=== PATIENT | female | born 2005 | race Caucasian/White ===

== ENCOUNTER 2024-10-30 16:52 | Outpatient (REF) | payer BC, SELFPAY ==
--- NOTE | ~2024-10-30 | MR_ITS ---
CLINICAL HISTORY: EFFUSION INSTABILITY MR right knee without gadolinium Comparison: None provided Findings: No acute fracture or pathologic bone lesion. Focal abnormal signal in medial patellar facet articular cartilage of the inferior aspect with associated subcortical marrow change suggestive of grade 4 chondromalacia patella. Also irregularity of medial femoral condylar articular cartilage with subcortical bone marrow changes consistent with grade 4 chondromalacia. Ggpyv-[id number] joint effusion with superior synovial plica. Medial and lateral patellar retinacula are intact. Mild marginal osteophyte formation in medial and lateral tibiofemoral compartments. The ACL, PCL, MCL, LCL complex and the extensor mechanism appear intact. No medial or lateral meniscal tear. 1 cm intra-articular loose body posterior to the PCL. Visualized musculature appears unremarkable. IMPRESSION: 1. No meniscal or ligamentous tear. 2. Sjejy-ze-jtjxdiio joint effusion with superior synovial plica. 3. Early degenerative changes in medial and lateral tibiofemoral compartments. 4. 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 This document has been electronically signed by: Jael Shah MD on 10/30/2024 17:53:07
--- OUTSIDE RECORDS SUMMARY | 2024-10-30 17:12 | XMS_ITS | Clinical Summary ---
Author Organization [facility] Address [address] [place] [address] Phone Care Team Providers Care Sustainable Communities Designer Name Role Phone Vandana Rodriguez MD Primary Care Provider Vandana Rodriguez MD Unavailable [phone] Vandana Rodriguez MD Unavailable [phone] Medications ondansetron ODT (Zofran-ODT) 4 mg disintegrating tablet Dose: 4 mg, Dose Amount: 1 tab, PO, Q8hr, PRN Nausea/Vomit ing, Special Instructions : Indication: ONCOLOGY, Dispense Quantity: 10 tab, Refills: 1, Entered: 04/27/19 7:31:04 EDT, 77.8 0 Active Social History Tobacco Use Types Packs/Day Years Used Date Smoking Tobacco: Never Assessed Comments Unknown Sex and Gender Information Value Date Recorded Sex Assigned at Not on file Legal Sex Female 10:49 PM EDT Gender Identity Not on file Sexual Orientation Not on file Last Filed Vital Signs Vital Sign Reading Time Taken Comments Blood Pressure - - Pulse - - Temperature 36.7 C (98.1 F) 09/08/2020 4:09 PM EDT Respiratory Rate - - Oxygen Saturation - - Inhaled Oxygen Concentration - - Weight 84.2 kg (185 lb 10 oz) 09/08/2020 4:09 PM EDT Height 182 cm (5' 11.65 ) 09/08/2020 4:09 PM EDT Body Mass Index 25.42 09/08/2020 4:09 PM EDT Plan of Treatment Not on file Care Teams Sustainable Communities Designer Relationship Specialty Start Date End Date Vandana Rodriguez MD [address] [place] [address] PCP - General 09/05/20 Vandana Rodriguez MD [address] [place] [address] PCP - Insurance PCP 04/16/19 Vandana Rodriguez MD [address] [place] [address] PCP - Clinical PCP 09/25/13
--- OUTSIDE RECORDS SUMMARY | 2024-10-30 17:12 | XMS_ITS | Clinical Summary ---
Author Organization [facility] Address [address] [place] [phone] Phone Care Team Providers Care Slubber Machine Operator Name Role Phone Vandana Rodriguez MD Primary Care Provider [phone] Allergies No known active allergies Medications SUMAtriptan (Imitrex) 25 MG tabletIndication s:Migraine with aura and without status migrainosus, not intractable Take 1 tablet (25 mg total) by mouth once as needed for migraine for up to 1 dose. 9 tablet 1 1 Active Active Problems Problem Noted Date Diagnosed Date Herpes simplex 09/19/2021 Assessment & Plan (09/20/2021 7:17 AM EDT): Has not had any further issues. Discussed taking meds immediately at the first sign of an out break. Migraine with aura and witho ut status migrainosus, not intractable 09/16/2017 Assessment & Plan (09/20/2021 7:18 AM EDT): Has been doing well, not needing her sumatriptan. Discussed prevention. Discussed immediate medication if having a migraine. Assessment & Plan (2020 4:20 PM EDT): Has been doing great. Rx for imitrex refilled today, take immediately at the beginning of a migraine. Assessment & Plan (09/29/2019 12:57 PM EDT): Very rare at this point. Assessment & Plan (09/18/2018 10:31 AM EDT): Much better. Sumatriptan works well, discussed increasing dose to 50 mg if needed. Discussed trying to identify triggers and avoid when possible. Assessment & Plan (09/16/2017 11:02 AM EDT): Aura: pain behind left eye. Not always with aura. Has needed to take Imitrex 3-4 times last year, works well. Discussed taking it early into the process. Discussed continuing to try and identify triggers. Resolved Problems Problem Noted Date Diagnosed Date Resolved Date H/O methicillin resistant St aphylococcus aureus infection 2020 09/20/2021 Cellulitis due to MRSA 07/31/202009/15 Overview (07/31/2020): L upper anterior thigh 07/2020 Assessment & Plan (2020 4:19 PM EDT): Resolved. Discussed possible recurrence. Discussed contagiousness. Discussed mupirocin and compresses. Osteochondritis dissecans of knee, right 05/19/2019 2020 Overview (05/19/2019): Surgery 04/27/19 Assessment & Plan (09/29/2019 12:56 PM EDT): Completely recovered from the surgery, continues w/ PT. Allowed to run and jog, still no basketball or volleyball yet. Immunizations Immunization Administration Dates Next Due DTaP 09/22/2008, 5,03/20/2004,01/18,2003 HPV Vaccine 9 Valent 09/19/2016,10/05/2015 Hep A, ped/adol 09/18/2018,09/16/2017 Hep B, ped/adol 03/20/2004, 4,2003,09/16 Hib (HbOC) 12/18/2004, 5,01/19/2004,11/16 IPV 09/22/2008, 5,01/19/2004,11/16 Influenza, injectable, quadrivalent 10/08/2013 Influenza, injectable, quadr ivalent, preservative free 10/28/2018,04/04/2017 Influenza, injectable, trivalent 013,01/14/2007,11/28/2005,01/17,12/18/2004 Influenza, intranasal, quadrivalent 05/02/2009,0 04/02/2009 Influenza, intranasal, trivalent 013,10/31/2010,12/18/2009,12/15,12/16/2007 MMR 09/17/2007,12/18/2004 Meningococcal B Bexsero 09/19/2021,06/29/2021 Meningococcal Conj (Menactra) MCV4P 09/29/2019,0 10/19/2014 Pneumococcal Conjugate 13-Valent 03/20/2004,09/2003,2003 Tdap 10/19/2014 Varicella 09/22/2008,09/17/2007,09/14/2004 Family History Medical History Relation Name Comments No Known Problems Father Heart disease Maternal Grandfather Heart disease (Premature) Maternal Grandfather Hyperlipidemia Maternal Grandfather Lymphoma Maternal Grandfather Heart disease Maternal Grandmother Heart disease (Premature) Maternal Grandmother Hyperlipidemia Maternal Grandmother Melanoma Maternal Grandmother No Known Problems Mother Diabetes Paternal Grandfather Heart disease Paternal Grandfather Hyperlipidemia Paternal Grandfather Prostate cancer Paternal Grandfather No Known Problems Paternal Grandmother No Known Problems Sister 1 Paulina No Known Problems Sister 2 Allyn Relation Name Status Comments Father Alive Maternal Grandfather heart d isease, hypertension, hyperlipidemia, Lymphoma Maternal Grandmother heart d isease, hypertension, melanoma Mother Alive Paternal Grandfather Alive diabete s, heart disease, prostate cancer, hyperlipidemia Paternal Grandmother Alive Sister 1 Paulina Alive Sister 2 Allyn Alive Social History Tobacco Use Types Packs/Day Years Used Date Smoking Tobacco: Never Smokeless Tobacco: Never Alcohol Use Standard Drinks/Week Comments Never 0 (1 standard drink = 0.6 oz pur e alcohol) Hunger/Food Answer Date Recorded In the last 12 months, did y ou or your family ever eat less than you felt you should because there wasn't enough money for food? No 09/19/2021 Stable Housing Answer Date Recorded Are you worried that in the next 2 months you may not have stable housing? No 09/19/2021 Transportation Concerns Answer Date Rec orded In the last 12 months, have you or your family ever had to go without healthcare because you didn't have a way to get there? No 09/19/2021 Hazards in Home Answer Date Recorded Think about the place you li ve. Do you have problems with any of the following? Pests (mice or roaches), mold, no/not working smoke detectors, water leaks, no window guards. No 2021 Financing Utilities Answer Date Recorde d In the last 12 months, has t he electric, gas, oil, or water company threatened to shut off your services in your home? No 09/19/2021 Safety at Home Answer Date Recorded Are you or your family worried about feeling saf e in your home? No 09/19/2021 Outside Support Answer Date Recorded Do you feel that you need mo re support from other people or programs to help you care for yourself or your family? No 09/19/2021 Understanding Health Concerns Answer Da te Recorded Do you need help understandi ng your or your child's healthcare needs (diagnosis, medications, plan, etc.)? No 09/19/2021 Financing Health Concerns Answer Date R ecorded In the last 12 months, was t here a time when your child needed to see a doctor or get medications or supplies but could not because of cost? No 09/19/2021 Missing School or Work Answer Date Chase rded Did you or your child miss s chool or work because of a health problem that could have been avoided? No 09/19/2021 Comments Unknown Sex and Gender Information Value Date Recorded Sex Assigned at Female 09/29/2019 12:58 PM EDT Legal Sex Female 11:53 PM EST Gender Identity Female 09/29/2019 12:58 PM EDT Sexual Orientation Straight 09/29/2019 12 :58 PM EDT Last Filed Vital Signs Vital Sign Reading Time Taken Comments Blood Pressure 122/76 09/19/2021 10:44 AM EDT Pulse - - Temperature 36.5 C (97.7 F) 05/16/2021 8:49 AM EDT Respiratory Rate - - Oxygen Saturation - - Inhaled Oxygen Concentration - - Weight 88.7 kg (195 lb 9.6 oz) 09/19/2021 10:44 AM EDT Height 181.6 cm (5' 11.5 ) 09/19/2021 10:44 AM E DT Body Mass Index 26.9 09/19/2021 10:44 AM EDT Plan of Treatment Health Maintenance Due Date Last Done Comments Influenza Vaccines (#1) 2024 10/29/19 19, 04/04/2017, 10/08/2013, Additional history exists COVID-19 Vaccine ( season) 2024 02/07/2021, 07/04/2020, 06/09/2020 DTaP,Tdap,and Td Vaccines (7 - Td or Tdap) 10/19/2024 10/19/2014, 09/22/2008, 12/18/2004, Additional history exists Hepatitis B Vaccines Completed 03/20/2004, 01/19/2004, 2003, Additional history exists Pneumococcal Vaccine Aged Out 03/20/2004, 01/19/2004, 2003 No longer eligible based on patient's age to complete this topic HIB Vaccines Completed 12/18/2004, 08/2004, 01/19/2004, Additional history exists MMR Vaccines Completed 09/17/2007, 12/18/2004 IPV Vaccines Completed 09/22/2008, 08/2004, 01/19/2004, Additional history exists Varicella Vaccines Completed 09/22/2008, 0 09/17/2007, 09/14/2004 HPV Vaccines Completed 09/19/2016, 10/05/2015 Hepatitis A Vaccines Completed 09/18/2018, 09/17/19 18 Meningococcal Vaccine Completed 09/29/2019, 015 Men B Vaccine Completed 09/19/2021, 06/29/2021 Procedures * Due to [place] [employer] law, this organization might not be sharing sensitive test results. Procedure Name Priority Date/Time Associated Diagnosis Comments CHLAMYDIA AND GONORRHEA, AMPLIFIED Routine 09/19/2021 11:06 AM EDT Routine screening for STI (sexually transmitted infection) from Last 3 Months or Most Recently Relevant to Health Maintenance Results * Due to [place] [employer] law, this organization might not be sharing sensitive test results. * Chlamydia and Gonorrhea, Amplified (09/19/2021 11:06 AM EDT) Neisseria Gonorrhoeae DNA Negative [facility] Comment: A positive test for N. gonorrhoeae, C. trachomatis or T. vaginalis in a prepubertal child should be reported to the Child Protection Program. Additional testing may be required before treatment, and further evaluation may be necessary. This can be facilitated by contacting the Child Protection Program. Chlamydia, Amplified Negative [facility] Comment: A positive test for N. gonorrhoeae, C. trachomatis or T. vaginalis in a prepubertal child should be reported to the Child Protection Program. Additional testing may be required before treatment, and further evaluation may be necessary. This can be facilitated by contacting the Child Protection Program. Urine (Urine) 09/19/2021 11: 06 AM EDT 09/19/2021 9:47 PM EDT Narrative [facility] - 09/20/2021 12:08 PM EDT Performed by [facility] MedicinePhone - [phone] Horse Breaker: Adelaide Ashley MD(CLIA Certificate: [id number]) Vandana Rodriguez MD LAB MICROBIOLOGY - GENERAL ORDER PADMINI Final Result [facility] [address] [place] [address], from Last 3 Months or Most Recently Relevant to Health Maintenance Insurance [facility] H[facility] Care Teams Slubber Machine Operator Relationship Specialty Start Date End Date Vandana Rodriguez MD [address] [place] [id number] PCP - General 04/03/16
--- OUTSIDE RECORDS SUMMARY | 2024-10-30 17:12 | XMS_ITS | Clinical Summary ---
Author Organization [facility] Address [address] [place] [address] Phone Care Team Providers Care Superintendent Pressure Name Role Phone Vandana Rodriguez MD Primary Care Provider [phone] Allergies No known active allergies Medications No known medications Active Problems No known active problems Encounters Date Type Department Care Team Description 09/21/2024 11:30 AM EDT Office Visit [facility] [address] [place] [address] Racquel Johnson, EDITA HSV (herpes simplex virus) anogenital infection (Primary Dx) from Last 3 Months Immunizations No known immunizations Social History Tobacco Use Types Packs/Day Years Used Date Smoking Tobacco: Never Assessed Education Answer Date Recorded Are you interested in more education? Not on maria teresa e 06/17/2022 Are you concerned about learning? Not on file 06/17/2022 No 06/17/2022 No 06/17/2022 Digital Access Answer Date Recorded No 07/08/2022 No 07/08/2022 Reliable internet access at home? Not on file 07/08/2022 Device with a working camera? Not on file Comments Unknown Sex and Gender Information Value Date Recorded Sex Assigned at Not on file Legal Sex Female 6:33 PM EST Gender Identity Not on file Sexual Orientation Not on file Last Filed Vital Signs Vital Sign Reading Time Taken Comments Blood Pressure 122/81 09/21/2024 12:35 PM EDT Pulse 71 09/21/2024 12:35 PM EDT Temperature 36.4 C (97.6 F) 09/21/2024 12:35 PM EDT Respiratory Rate 16 09/21/2024 12:35 PM EDT Oxygen Saturation 99% 09/21/2024 12:35 PM EDT Inhaled Oxygen Concentration - - Weight 83.9 kg (185 lb) 07/14/2020 11:29 AM EDT Height 185.4 cm (6' 1 ) 07/14/2020 11:29 AM EDT Body Mass Index 24.41 07/14/2020 11:29 AM EDT Plan of Treatment Upcoming Encounters Date Type Department Care Team (Late st Contact Info) Description 02/23/2025 8:30 AM EST Office Visit [facility] [address], [address] [place] [address] Vanessa Cordero MD [address] [facility] [address] [place] [address] Health Maintenance Due Date Last Done Comments DEPRESSION SCREENING 2015 SMOKING Hx and SMOKELESS TOBACCO SCREENING 09/14/2016 ADOLESCENT UNIVERSAL LIPID SCREENING 09/14/2020 HEPATITIS C SCREENING 09/14/2021 HIV ONE-TIME SCREENING (18-65 YEARS) 09/14/2021 05/16/2021 CHLAMYDIA SCREENING 05/16/2022 05/16/2021 INFLUENZA VACCINE (#1) 2024 10/28/2018, 2017 PAP SMEAR 09/14/2024 COVID-19 VACCINE ( season) 2024 02/07/2021, 07/04/2020, 06/09/2020 Adult Td,Tdap Booster 10/19/2024 10/19/2014 COMBINED DTaP,Tdap,Td (7 - Td or Tdap) 10/19/2024 10/19/2014, 09/22/2008, 12/18/2004, Additional history exists MMR VACCINES Completed 09/17/2007, 12/18/2004 HPV VACCINES Completed 09/19/2016, 10/05/2015 HEPATITIS A VACCINES Completed 09/18/2018, 09/17/19 18 MENINGOCOCCAL VACCINES (ACWY) Completed 09/29/2019 MENINGOCOCCAL VACCINES (B) Completed 09/19/2021, HIB VACCINES Aged Out No longer eligi ble based on patient's age to complete this topic PNEUMOCOCCAL VACCINES (0-49 years) Aged Out No longer eligible based on patient's age to complete this topic Medical Devices Not on file Procedures Procedure Name Priority Date/Time Associated Diagnosis Comments CHLAMYDIA TRACHOMATIS AND NEISSERIA GONORRHOEAE NUCLEIC ACID DETECTION STAT 05/16/2021 1:40 PM EDT from Last 3 Months or Most Recently Relevant to Health Maintenance Results * Chlamydia Trachomatis and Neisseria Gonorrhoeae Nucleic Acid Detection (05/16/2021 1:40 PM EDT) Specimen Type CERVIX [facility] C.TRACHOMATIS, AMP Negative Negative [facility] N.Gonorrhoeae, AMP Negative Negative [facility] Other (Cervical) 05/16/2021 1:40 PM EDT 05/16/2021 1:46 PM EDT Quin Chaudhary PA-C NON CULTURE MICROBIOLOGY Fin al Result [facility] [address] [place] [address] from Last 3 Months or Most Recently Relevant to Health Maintenance [place] [address] [place] [address] [place] [address] [facility] Care Teams Superintendent Pressure Relationship Specialty Start Date End Date Vandana Rodriguez MD [address] [place] [address] PCP - General Pediatrics 04/23/15 02/18/25 Additional Source Comments The information contained in this document represents components of the legal health record. It is not the complete legal health record.[facility]
--- OUTSIDE RECORDS SUMMARY | 2024-10-30 17:12 | XMS_ITS | Clinical Summary ---
Author Organization Yudelka Peña [facility] Address [address] [place] [address] Care Team Providers Care Manual Qa Tester Name Role Phone Vandana Rodriguez Primary Care Provider [phone] Medications methylPREDNISolone (MEDROL DOSEPACK) 4 mg tablet 24 mg PO on day 1, then decrease by 4 mg/day x 5 days 1 Package 0 3 Active ondansetron (ZOFRAN-ODT) 4 MG disintegrating tablet 4 MG PO Q6H PRN Nausea 10 tablet 0 3 Active oxyCODONE (ROXICODONE) 5 MG immediate release tablet 5 - 10 MG PO Q6H PRN Pain 40 tablet 0 3 Active Social History Tobacco Use Types Packs/Day Years Used Date Smoking Tobacco: Never Assessed Comments Unknown Sex and Gender Information Value Date Recorded Sex Assigned at Not on file Legal Sex Female 1:57 AM EST Gender Identity Female 03/12/2023 1:57 AM EST Sexual Orientation Not on file Last Filed Vital Signs Vital Sign Reading Time Taken Comments Blood Pressure - - Pulse - - Temperature - - Respiratory Rate - - Oxygen Saturation - - Inhaled Oxygen Concentration - - Weight 84 kg (185 lb 3 oz) 08/06/2022 1:31 PM ED T Height 185.4 cm (6' 1 ) 08/06/2022 1:31 PM EDT Body Mass Index 24.43 08/06/2022 1:31 PM EDT Plan of Treatment Health Maintenance Due Date Last Done Comments Blood Pressure 2003 Depression Screening 2007 Chlamydia and Gonorrhea Screening 09/14/2018 Meningococcal B Vaccines (1 of 2 - Standard) 2019 Hepatitis C Screening 09/14/2021 DTaP,Tdap,and Td Vaccines (1 - Tdap) 09/14/2022 Cervical Cancer Screening 09/14/2024 Pap Smear 09/14/2024 COVID-19 Vaccine (2023-2 5 season) 2024 Influenza Vaccine (#1) 2024 Meningococcal Vaccines Aged Out No lo nger eligible based on patient's age to complete this topic Pneumococcal Vaccine: Pediat rics (0 to 5 Years) and At-Risk Patients (6 to 64 Years) Aged Out No longer eligible b ased on patient's age to complete this topic Care Teams Manual Qa Tester Relationship Specialty Start Date End Date Vandana Rodriguez [address] [place] [id number] PCP - General 08/15/22
--- OUTSIDE RECORDS SUMMARY | 2024-10-30 17:12 | XMS_ITS | Encounter Summary ---
Author Organization [facility] Address [address] [place] [phone] Phone Care Team Providers Care Experimental Mechanic Name Role Phone Vandana Rodriguez MD Primary Care Provider [phone] Encounter Details Date Type Department Care Team (Late st Contact Info) Description 09/19/2016 Conversion Encounter [facility] [address] [place] [id number] Vandana Rodriguez MD [address] [place] [id number] Social History Tobacco Use Types Packs/Day Years Used Date Smoking Tobacco: Never Assessed Comments Unknown Sex and Gender Information Value Date Recorded Sex Assigned at Female 09/29/2019 12:58 PM EDT Legal Sex Female 11:53 PM EST Gender Identity Female 09/29/2019 12:58 PM EDT Sexual Orientation Straight 09/29/2019 12 :58 PM EDT documented as of this encounter Plan of Treatment Not on file documented as of this encounter Visit Diagnoses Not on filedocumented in this encounter Care Teams Experimental Mechanic Relationship Specialty Start Date End Date Vandana Rodriguez MD [address] [place] [id number] PCP - General 04/03/16 documented as of this encounter
== END 2024-10-30 16:53 | disposition home or self-care (01) ==
LOC: HO.MRI 16:52
PROVIDERS: Visit Provider Student in an Organized Health Care Education/Training Program
DX: M25.461 Effusion, right knee (principal); M25.361 Other instability, right knee
CPT/HCPCS: 73721

== ENCOUNTER → 2024-10-30 17:11 | Outpatient (BNV) | payer BC, SELFPAY | PROVIDERS: Visit Provider Specialist | DX: M25.461 Effusion, right knee (principal); M67.51 Plica syndrome, right knee; M94.261 Chondromalacia, right knee | CPT/HCPCS: 73721 ==